=== PATIENT | male | born 1990 | race African-American/Black ===

== ENCOUNTER 2017-07-03 08:56 | Emergency (ER) | payer SELFPAY ==
[~2017-07-03] VITALS: Ht 175.3 cm; Wt 77.0 kg
[~2017-07-03 08:56] MED LIST: CEPHALEXIN500 M1 PO; LORTAB 5/500 501 TAB PO; NAPROSYN500 MG PO; NO HOME MEDICATIONS; NORCO 325 MG-51 TAB PO
[2017-07-03 09:03] VITALS: BP 119/76; TEMP 99
[2017-07-03] MEDS ORDERED: AMOXICILLIN/CLA1 TA1 PO (11:14)
[2017-07-03] MEDS ORDERED: TYLENOL W/COD1 UDTAB PO (11:14)
[2017-07-03 11:30] VITALS: PULSE 85
== END 2017-07-03 11:30 | disposition home or self-care (01) ==
LOC: COL.ER 08:56
DX: K61.1 Rectal abscess (principal); L03.317 Cellulitis of buttock; F17.210 Nicotine dependence, cigarettes, uncomplicated

== ENCOUNTER 2019-02-26 21:44 | Emergency (ER) | payer SELFPAY ==
[~2019-02-26] VITALS: Ht 180.3 cm; Wt 74.5 kg
[~2019-02-26 21:44] MED LIST changes: +AMOXICILLIN/CLA1 TA1 PO; +TYLENOL W/COD1 UDTAB PO
[2019-02-26 21:46] VITALS: TEMP 98.4
[2019-02-27 00:49] VITALS: BP 128/70; PULSE 72
== END 2019-02-27 00:50 | disposition home or self-care (01) ==
LOC: COL.ER 21:44
DX: N34.2 Other urethritis (principal); F17.210 Nicotine dependence, cigarettes, uncomplicated
CPT/HCPCS: J0696

== ENCOUNTER 2021-10-23 16:27 | Emergency (ER) | payer SELFPAY ==
[~2021-10-23] VITALS: Ht 175.3 cm; Wt 72.7 kg
[2021-10-23 16:35] VITALS: BP 113/73; PULSE 93; TEMP 98
[2021-10-23] MEDS ORDERED: CLEOCIN HCL300 MG PO (17:41)
== END 2021-10-23 17:00 | disposition home or self-care (01) ==
LOC: COL.ER 16:27
DX: K02.9 Dental caries, unspecified (principal); K03.81 Cracked tooth; F17.200 Nicotine dependence, unspecified, uncomplicated; Z28.310 Unvaccinated for COVID-19